=== PATIENT | female | born 1995 | race Caucasian/White ===

== ENCOUNTER 2019-02-20 12:18 | Emergency (ER) | payer BC ==
[2019-02-20 12:44] VITALS: BP 135/96
--- NOTE | 2019-02-20 12:53 | UC ---
General HPI - HPI Summary HPI Summary: sore throat x 1 week. noted a sore on the R tonsil today. + fatigue. REVELES at onset but none now. No fever. No change in voice or trouble with swallow. pt states triage BP is white coat HTN. - History of Current Complaint Chief Complaint: UCRespiratory Stated Complaint: SORE THROAT Time Seen by Provider: 02/20/19 12:38 Hx Obtained From: Patient Hx Last Menstrual Period: 02/10/19 Onset/Duration: Gradual Onset Timing: Constant Pain Intensity: 4 - Allergy/Home Medications Allergies/Adverse Reactions: Allergies Allergy/AdvReac Type Severity Reaction Status Date / Time Cephalosporins Allergy Hives Verified 02/20/19 12:40 sporins Allergy Hives Uncoded 02/20/19 12:40 Home Medications: Home Medications Isotretinoin [Absorica] 1 tab DAILY 02/20/19 [History Confirmed 02/20/19] PMH/Surg Hx/FS Hx/Imm Hx Previously Healthy: Yes - Surgical History Surgical History: None - Family History Known Family History: Positive: Non-Contributory - Social History Alcohol Use: None Substance Use Type: None Smoking Status (MU): Never Smoked Tobacco - Immunization History Vaccination Up to Date: Yes Review of Systems All Other Systems Reviewed And Are Negative: Yes Constitutional: Positive: Fatigue ENT: Positive: Sore Throat Physical Exam Triage Information Reviewed: Yes Appearance: Well-Appearing Vital Signs: Initial Vital Signs Temp 97.4 F 02/20/19 12:42 Pulse 88 02/20/19 12:42 Resp 16 02/20/19 12:42 BP 135/96 02/20/19 12:42 Pulse Ox 100 02/20/19 12:42 Vital Signs Reviewed: Yes Eyes: Positive: Conjunctiva Clear ENT: Positive: Pharyngeal erythema, TMs normal, Tonsillar swelling - R slightly greater than L., Uvula midline, Other - R tonsil has a 1cm raised lesion that has no exudate and nurse noted an orange drainage with culture.. Negative: Nasal congestion, Nasal drainage, Tonsillar exudate, Trismus, Muffled voice, Hoarse voice Neck: Positive: Supple, Tenderness @ - peritonsialr nodes, Enlarged Nodes @ - anterior cervical chain. Respiratory: Positive: Lungs clear, Normal breath sounds Cardiovascular: Positive: RRR, No Murmur Abdomen Description: Positive: Nontender, No Organomegaly, Soft. Negative: Distended, Guarding, Hepatomegaly, Splenomegaly Bowel Sounds: Positive: Present Musculoskeletal: Positive: ROM Intact Neurological: Positive: Alert Psychological: Positive: Age Appropriate Behavior Skin Exam: Normal, Other - No posterior cervical, axillary, epitrochlear or inguinal adenopathy. Diagnostics - Laboratory Lab Results: Rapid strep=negative Course/Dx - Course Course Of Treatment: NO HX OF HTN, PT STATES THIS BP IS "WHITE COAT" - Differential Dx - Multi-Symptom Differential Diagnoses: Other - Rapid strep is negative. Lesion on R tonsil not typical of an ulcer, exudate or cellulitis thus will send for a TC. Given fatigue and tonsil lesion, will check a cbc with diff and mono. I am also going to cover for presumptive bacterial infection with Zithromax because pt is PCN/ Cephalosporin allergic plus I would like to avoid a rash if this is mono. I will refer to ent as well because pt is from [place] and they have no ent there. - Diagnoses Provider Diagnosis: Tonsillitis Discharge - Sign-Out/Discharge Documenting (check all that apply): Patient Departure All imaging exams completed and their final reports reviewed: No Studies - Discharge Plan Condition: Stable Disposition: HOME Prescriptions: Azithromycin 500 mg PO DAILY 5 Days #5 tablet Patient Education Materials: Tonsillitis (ED) Referrals: Andrew Christianson MD [Medical Doctor] - 7 Days - Billing Disposition and Condition Condition: STABLE Disposition: Home
[2019-02-21 13:07] LABS: ABS Basophils 0.1 10^3/ul (0-0.2); ABS Eosinophils 0.1 10^3/ul (0-0.6); ABS Lymphocytes 1.7 10^3/ul (1.0-4.8); ABS Monocytes 0.7 10^3/ul (0-0.8); ABS Neutrophils 5.5 10^3/ul (1.5-7.7); Eosinophil % 1.3 %; Hematocrit 39 % (35-47); Hemoglobin 12.9 g/dL (12.0-16.0); Mean Corpuscular HGB Conc 34 g/dL (31-36); Mean Corpuscular Hemoglobin 29 pg (27-31); Mean Corpuscular Volume 86 fL (80-97); Mean Platelet Volume 10.6 fL (7.4-10.4); Nucleated Red Blood Cells % 0.1; Platelet Count 298 10^3/uL (150-450); Red Cell Distribution Width 15 % (10.5-15)
[2019-02-23 13:37] LABS: EBV Capsid Ag IgG Ab Negative (Negative); EBV Capsid Ag IgM Ab Negative (Negative); Epstein-Barr Nuclear Antigen Negative (Negative)
--- NOTE | 2019-02-24 08:06 | UC ---
- Progress Note Progress Note: EBV studies negative for IgG and IgM - no change in initial management. Course/Dx - Diagnoses Provider Diagnoses: Tonsillitis Discharge - Sign-Out/Discharge Documenting (check all that apply): Post-Discharge Follow Up All imaging exams completed and their final reports reviewed: No Studies - Discharge Plan Condition: Stable Disposition: HOME Prescriptions: Azithromycin 500 mg PO DAILY 5 Days #5 tablet Patient Education Materials: Tonsillitis (ED) Referrals: Andrew Christianson MD [Medical Doctor] - 7 Days - Billing Disposition and Condition Condition: STABLE Disposition: Home
== END 2019-02-20 13:31 | disposition home or self-care (01) ==
LOC: UCCORT 12:18
DX: J03.90 Acute tonsillitis, unspecified (principal); Z88.1 Allergy status to other antibiotic agents
CPT/HCPCS: 36415; 85025; 86308; 86664; 86665; 87070; 87651; 99202; G0463